=== PATIENT | female | born 1955 | race Caucasian/White ===

== ENCOUNTER 2020-02-20 12:32 | Emergency (ER) | payer BC, SELFPAY ==
[2020-02-20 12:33] VITALS: BP 195/134; PULSE 73; RESP 18; TEMP 36.3; O2SAT 99; BMI 28.3
--- NOTE | 2020-02-20 12:52 | RAD_ITS ---
STUDY: X-RAY - RIGHT KNEE REASON FOR EXAM: Female, 64 years old. NO INJURY, SWELLING TECHNIQUE: 4 view(s) of the knee. COMPARISON: Left knee dated 02/20/2020 FINDINGS: Normal visualized distal femur. Normal visualized proximal tibia. There is a curvilinear smooth bony density cranial to the proximal fibula which may reflect a ossicle or may be secondary to remote injury. Normal proximal tibiofibular articulation. Normal medial femorotibial compartment. Normal lateral femorotibial compartment. 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 The soft tissue structures are unremarkable. RAD/Knee 4 or More Views IMPRESSION: Mild degenerative changes of the patellofemoral articulation. Electronically Signed: Enid Hudson MD at 14:03 EST Tel , Service support ,
--- NOTE | 2020-02-20 13:02 | ED.VISSUMM ---
- ER Visit Summary Date of Service: 02/20/20 Chief Complaint: [Bilateral knee pain and difficulty walking] History of Present Illness: The patient is a 64 F [presents to the emergency department complaint of knee pain for the last 3 days. She denies any injury or trauma. Patient states that she was passing through the area on the way to or father's home as he recently . Patient try to go into a rest stop the restroom and could not walk secondary to pain. Patient felt a snap in the right knee and then could not bear any weight. Her son and had to carry her essentially to the car. Patient states that she has been having some discomfort and last night had a hard time walking up steps. She was given ibuprofen last evening and she woke up she felt like she could not go to the restroom and felt like she was not getting any worse until the incident at the rest. She is not had issues like this before. Patient states she otherwise is in good health and is currently training for a 1000 mile bike ride. Patient does have history of high cholesterol as well as osteopenia and hypothyroidism. No history of gout. No recent illness otherwise. She denies any exposures to COVID-19.] Physical Examination: [HEENT-PERRLA, EOMI. Cranial nerves II through XII grossly intact. TMs clear. Mucous membranes moist. No adenopathy. Cardiovascular-regular rate and rhythm without murmur or ectopy Lungs-clear to auscultation, chest wall stable without crepitus or subcu emphysema Abdomen-normoactive bowel sounds, soft, nontender, no rebound or rigidity, no peritoneal signs. Extremities-intact ?4, normal range of motion, normal pulses, atraumatic. Patient has normal range of motion flexion extension of both knees. There are no effusions noted. There is no erythema or warmth noted. She is neurovascular intact distally. Negative Homans' sign bilaterally. She does have some diffuse tenderness over the medial joint lines bilaterally. No popping or clicking noted through range of motion.] Test Results: [CBC with differential obtained showed a white count of 4.7, hemoglobin 12.6, hematocrit 40, placed 249. Sed rate was 3. Chemistries unremarkable. C-reactive protein was 2.9. Rays of the right knee obtained interpreted by myself as no acute fractures in radiology agreed only some mild degenerative changes noted. X-rays of the left knee obtained read by myself as no acute fractures or dislocations. Radiology agreed and noted mild degenerative changes and a lateral patellar tilt.] Emergency Department Course and Treatment: [Patient was given 1 [place] tablet. I discussed options with patient as far as outpatient therapy and follow-up with orthopedics including knee immobilizer and crutches and [place] for pain. Also gave her the option to be admitted for pain control if she did not feel she could walk. She understands she may need further imaging such as possibly MRI to evaluate further. Patient discussed this with her family and her and would prefer to be at home and have outpatient follow-up.] Treatment Plan: [Patient to follow-up with her primary care physician or digital asset specialist back home. I will also give her a referral to orthopedics locally as she states that her mother lives here in [place].] Disposition: [Discharged home in stable condition] Impression: [Bilateral knee pain Right knee sprain-possible internal derangement] This note was generated with [employer] dictation software. It may contain incorrect words, spelling, and punctuation that were not noted in review of the chart prior to signing
[2020-02-20 13:11] LABS: Erythrocyte Sedimentation Rate 3 mm/hr (0-30)
[2020-02-20 13:12] LABS: Absolute Lymphocyte Count 1.52 X10^3/uL (0.83-4.51); Absolute Neutrophil Count 2.3 X10^3/uL (2.0-7.7); Basophil# 0.05 X10^3/uL; Basophil% 1.1 % (0-1); Eosinophil# 0.19 X10^3/uL; Eosinophils% 4.1 % (0-5); Hematocrit 40.2 % (37-47); Hemoglobin 12.6 g/dL (12.0-15.0); Lymphocyte # 1.52 X10^3/ul (4.0); Lymphocyte % 32.5 % (19-41); Mean Corp Hgb Conc 31.3 g/dL (32-36); Mean Corpuscular Hgb 28.3 pg (27.0-32.0); Mean Corpuscular Volume 90.3 fL (81-99); Mean Platelet Vol. 9.9 fl (6.2-12.0); Monocyte# 0.55 X10^3/uL; Monocyte% 11.8 % (0-10); NRBC Flagged by Analyzer 0 % (0-5); Neutrophil # 2.34 X10^3/uL (2.7-7.7); Neutrophil % 50.1 % (47-70); Platelet Count 249 K/mm3 (150-450); RBC Distribution Width CV 13.7 % (11.6-14.6); RBC Distribution Width SD 45.4 fl (35.1-43.9); Red Blood Count 4.45 M/mm3 (4.2-5.4); White Blood Count 4.7 K/mm3 (4.4-11.0)
--- NOTE | 2020-02-20 13:25 | RAD_ITS ---
STUDY: X-RAY - LEFT KNEE REASON FOR EXAM: Female, 64 years old. NO INJURY, SWELLING TECHNIQUE: 4 view(s) of the knee. COMPARISON: None. FINDINGS: Normal visualized distal femur. Normal visualized proximal tibia and fibula. Normal proximal tibiofibular articulation. Normal medial femorotibial compartment. Normal lateral femorotibial compartment. 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 There is lateral patellar tilt. The soft tissue structures are unremarkable. RAD/Knee 4 or More Views IMPRESSION: Mild degenerative changes of the patellofemoral articulation. Lateral patellar tilt. Electronically Signed: Enid Hudson MD at 14:04 EST Tel , Service support ,
[2020-02-20 13:27] LABS: Anion Gap 3 (5-15); BUN 16 mg/dL (7-18); CRP < 2.90 mg/L (0.0-3.0); Chloride 108 mmol/L (98-107); Creatinine, Serum 1.14 mg/dL (0.55-1.02); EST Glomerular Filtration Rate 51 mL/min (>60); Est Glom Filt Rate - Afr Amer 62 mL/min (>60); Estimated Creatinine Clearance 42.48 ml/min; Glucose 96 mg/dL (74-106); Potassium 4.3 mmol/L (3.5-5.1); Sodium Level 140 mmol/L (136-145)
[2020-02-20] MEDS: HYDROcodone Bitartrate/Apap 5/325 Tablet PO (13:43)
--- NOTE | 2020-02-20 14:26 | ED.DEP ---
ED Disposition - Plan for ED Patient: Instructions: ED Meniscal Injury Knee Poss Prescriptions: Naproxen [Naprosyn] 500 mg PO BID PRN #20 tab Prescription Printed Hydrocodone Bitart/Apap 5-325 [[place] 5MG-325MG] 1 tab PO Q4H PRN PRN 2 Days #20 tab PRN Reason: Pain Prescription Printed Referrals: Geovanni Fields DO [STAFF PHYSICIAN] - 3-5 Days
[2020-02-20 15:25] VITALS: RESP 14
== END 2020-02-20 15:26 | disposition home or self-care (01) ==
PROVIDERS: Emergency Provider Emergency Medicine
DX: S83.91XA Sprain of unspecified site of right knee, initial encounter (principal); M17.12 Unilateral primary osteoarthritis, left knee; X58.XXXA Exposure to other specified factors, initial encounter; Y93.9 Activity, unspecified; Y92.9 Unspecified place or not applicable; E03.9 Hypothyroidism, unspecified; E78.00 Pure hypercholesterolemia, unspecified; M85.80 Other specified disorders of bone density and structure, unspecified site; Z79.899 Other long term (current) drug therapy
CPT/HCPCS: 73564; 80048; 85025; 85652; 86140; 99285